=== PATIENT | male | born 1940 | race African-American/Black ===

== ENCOUNTER 2020-04-17 09:39 | Inpatient (IN) | payer BC, OTHER ==
[2020-04-17] MEDS ORDERED: SODIUM CHLORIDE 0.9% 500 ML INFUS.BAG IV ONE ×2 (10:18→12:54)
[2020-04-17 10:23] VITALS: BMI 26.2
[2020-04-17 11:23] LABS: BASO % 0.4 % (0-2.0); EOS % 0.6 % (0-4.5); HEMOGLOBIN 15.3 GM/dL (11.7-16.9); LYMPH % 8.8 % (8-40); MCH 34.9 pg (25.7-33.7); MCHC 33.3 g/dl (32.0-35.9); MEAN CELL VOLUME 104.7 fl (80-96); MEAN PLT VOLUME 8.6 fl (7.5-11.1); MONO % 9.4 % (3.8-10.2); NEUT % 80.8 % (42.8-82.8); PLATELET COUNT 230 K/MM3 (134-434); RBC 4.39 M/mm3 (4.00-5.60); RDW 13.1 % (11.9-15.9); WHITE BLOOD COUNT 7.2 K/mm3 (4.0-10.0)
[2020-04-17 11:29] LABS: INR 1.08 (0.83-1.09); PROTHROMBIN TIME (PATIENT) 13.3 SEC (9.7-13.0)
[2020-04-17 11:47] LABS: CHLORIDE 107 mmol/L (98-107); POTASSIUM 3.6 mmol/L (3.5-5.1); SODIUM 145 mmol/L (136-145)
[2020-04-17 11:49] LABS: ALBUMIN 3.3 g/dl (3.4-5.0); ANION GAP 10 MMOL/L (8-16); BLOOD UREA NITROGEN 13.1 mg/dL (7-18); CALCIUM 9.1 mg/dL (8.5-10.1); CO2 29 mmol/L (21-32); MAGNESIUM 1.9 mg/dL (1.8-2.4)
[2020-04-17 11:50] LABS: GLUCOSE,RANDOM 115 mg/dL (74-106)
[2020-04-17 11:52] LABS: PHOSPHOROUS 3.1 mg/dL (2.5-4.9); SGPT/ALT 38 U/L (13-61)
[2020-04-17 11:53] LABS: CREATININE 1.2 mg/dL (0.55-1.3); SGOT/AST 60 U/L (15-37)
[2020-04-17 11:54] LABS: BILIRUBIN,TOTAL 1.1 mg/dL (0.2-1); TOT PROT 8.1 g/dl (6.4-8.2)
[2020-04-17 11:55] LABS: ALK PHOS 35 U/L (45-117)
[2020-04-17] MEDS ORDERED: LORazepam 2 MG/ML SDV VIAL ONE (14:47)
[2020-04-17 16:29] LABS: URINE APPEARANCE CLEAR; URINE BILIRUBIN NEGATIVE (NEGATIVE); URINE COLOR YELLOW; URINE GLUCOSE (UA) NEGATIVE (NEGATIVE); URINE KETONE 40 mg/dl (NEGATIVE)
[2020-04-17 16:30] LABS: HYALINE CASTS 1.79 /uL (0-3.1); URINE BACTERIA 2538.9 /uL (0-1359); URINE LEUK ESTERASE 1+ (NEGATIVE); URINE NITRITE POSITIVE (NEGATIVE); URINE PROTEIN 1+ (NEGATIVE); URINE RBC 25.4 /uL (0-23.9); URINE WBC 1476.9 /uL (0-25.8)
[2020-04-17] MEDS ORDERED: CEFTRIAXONE 1 GM in DEXTROSE 5%-WATER - 100 ML IVPB ONE (16:53)
[2020-04-17] MEDS ORDERED: SODIUM CHLORIDE 1,000 ML IV SCH (18:00)
[2020-04-17] MEDS ORDERED: BACITRACIN 0.9 GM PACKET ONE (18:02)
[2020-04-17] MEDS ORDERED: cefTRIAXone SODIUM 1 GM VIAL ONE (18:03)
[2020-04-17] MEDS: BACITRACIN 15 GM TUBE TOPICAL OINTMENT TP SCH (18:17)
[2020-04-17 19:14] LABS: COCAINE, UR NEGATIVE ng/ml (CUTOFF=300); URINE AMPHETAMINES NEGATIVE ng/ml (CUTOFF=500); URINE BARBITURATES NEGATIVE ng/ml (CUTOFF=200)
[2020-04-17 19:15] LABS: OPIATES, URI NEGATIVE ng/ml (CUTOFF=300); PHENCYCLIDINE,URINE NEGATIVE ng/ml (CUTOFF=25)
[2020-04-17 19:20] LABS: METHADONE, UR NEGATIVE ng/ml (CUTOFF=300); URINE BENZODIAZEPINES NEGATIVE ng/ml (CUTOFF=200)
[2020-04-17] MEDS: HEPARIN NA (PORCINE) 5,000 UNITS/ML 1ML VIAL SQ SCH (22:40)
[2020-04-17] MEDS: INSULIN SLIDING SCALE (NOVOLOG) 1 VIAL SQ SCH (22:45)
[2020-04-18] MEDS: HEPARIN NA (PORCINE) 5,000 UNITS/ML 1ML VIAL SQ SCH ×3 (06:13→21:28)
[2020-04-18] MEDS: INSULIN SLIDING SCALE (NOVOLOG) 1 VIAL SQ SCH ×4 (06:13→21:27)
[2020-04-18 07:44] LABS: HEMATOCRIT 41.3 % (35.4-49); HEMOGLOBIN 13.6 GM/dL (11.7-16.9); MCH 34.4 pg (25.7-33.7); MEAN CELL VOLUME 104.3 fl (80-96); MEAN PLT VOLUME 8.1 fl (7.5-11.1); PLATELET COUNT 166 K/MM3 (134-434); RBC 3.96 M/mm3 (4.00-5.60); RDW 13.1 % (11.9-15.9); WHITE BLOOD COUNT 5.9 K/mm3 (4.0-10.0)
[2020-04-18 08:06] LABS: POTASSIUM 3.3 mmol/L (3.5-5.1)
[2020-04-18 08:10] LABS: ALBUMIN 2.8 g/dl (3.4-5.0); BLOOD UREA NITROGEN 10.9 mg/dL (7-18); CALCIUM 8.4 mg/dL (8.5-10.1); MAGNESIUM 1.9 mg/dL (1.8-2.4)
[2020-04-18 08:13] LABS: CREATININE 0.9 mg/dL (0.55-1.3)
[2020-04-18 08:15] LABS: TOT PROT 6.9 g/dl (6.4-8.2)
[2020-04-18] MEDS ORDERED: cefTRIAXone SODIUM 1 GM VIAL ONE (09:03)
[2020-04-18] MEDS ORDERED: DEXTROSE 5%-WATER - 50 ML IVPB ONE (09:03)
[2020-04-18] MEDS: BACITRACIN 15 GM TUBE TOPICAL OINTMENT TP SCH (09:18)
[2020-04-18] MEDS: SODIUM CHLORIDE 1,000 ML IV SCH (09:18)
[2020-04-18] MEDS: CEFTRIAXONE 1 GM in DEXTROSE 5%-WATER - 50 ML IVPB SCH (09:21)
[2020-04-18] MEDS ORDERED: LORazepam 1 MG TABLET PO PRN (10:17)
[2020-04-18] MEDS ORDERED: FOLIC ACID INJECTION - 1 MG, THIAMINE HCL 100 MG, MULTIVIT INJECTION ADULT 10 ML in SOD... IVPB ONE (10:23)
[2020-04-18] MEDS ORDERED: POTASSIUM PHOSPHATE 30 MM in SODIUM CHLORIDE 500 ML IVPB ONE (10:23)
[2020-04-18] MEDS: LORazepam 2 MG TABLET PO SCH ×2 (11:38→17:00)
[2020-04-18] MEDS ORDERED: THIAMINE HCL 200 MG/2 ML VIAL IVPB SCH (14:45)
[2020-04-18] MEDS ORDERED: PT OWN MED DRAWER 7, Y5N ONE (17:23)
[2020-04-18] MEDS: THIAMINE HCL 200 MG/2 ML VIAL IVPB SCH ×2 (19:00→21:15)
[2020-04-18] MEDS ORDERED: THIAMINE HCL 100 MG TABLET (FP) PO SCH (22:00)
[2020-04-18] MEDS: LORazepam 1 MG TABLET PO SCH (22:48)
[2020-04-19] MEDS: THIAMINE HCL 200 MG/2 ML VIAL IVPB SCH ×4 (02:55→22:32)
[2020-04-19] MEDS: HEPARIN NA (PORCINE) 5,000 UNITS/ML 1ML VIAL SQ SCH ×3 (06:04→22:37)
[2020-04-19] MEDS: LORazepam 1 MG TABLET PO SCH ×4 (06:05→22:36)
[2020-04-19] MEDS: INSULIN SLIDING SCALE (NOVOLOG) 1 VIAL SQ SCH ×4 (06:06→22:37)
[2020-04-19 07:14] LABS: BASO % 0.4 % (0-2.0); EOS % 6.2 % (0-4.5); HEMATOCRIT 36.5 % (35.4-49); LYMPH % 17.7 % (8-40); MCH 34.3 pg (25.7-33.7); MCHC 32.9 g/dl (32.0-35.9); MEAN CELL VOLUME 104.3 fl (80-96); MEAN PLT VOLUME 8.4 fl (7.5-11.1); MONO % 11.8 % (3.8-10.2); NEUT % 63.9 % (42.8-82.8); PLATELET COUNT 144 K/MM3 (134-434); RBC 3.51 M/mm3 (4.00-5.60); RDW 12.9 % (11.9-15.9); WHITE BLOOD COUNT 4.7 K/mm3 (4.0-10.0)
[2020-04-19 07:39] LABS: POTASSIUM 3.7 mmol/L (3.5-5.1)
[2020-04-19 07:41] LABS: CALCIUM 7.9 mg/dL (8.5-10.1)
[2020-04-19 07:42] LABS: ALBUMIN 2.4 g/dl (3.4-5.0); MAGNESIUM 1.9 mg/dL (1.8-2.4)
[2020-04-19 07:45] LABS: CREATININE 0.9 mg/dL (0.55-1.3); PHOSPHOROUS 2.7 mg/dL (2.5-4.9)
[2020-04-19 07:46] LABS: BILIRUBIN,TOTAL 0.7 mg/dL (0.2-1); TOT PROT 5.9 g/dl (6.4-8.2)
[2020-04-19] MEDS: SODIUM CHLORIDE 1,000 ML IV SCH (08:50)
[2020-04-19] MEDS: MULTIVITAMINS (DAILY MVI) TABLET (FP) PO SCH (09:00)
[2020-04-19] MEDS: BACITRACIN 15 GM TUBE TOPICAL OINTMENT TP SCH (09:00)
[2020-04-19] MEDS: FOLIC ACID 1 MG TABLET (FP) PO SCH (09:00)
[2020-04-19] MEDS ORDERED: DEXTROSE 5%-WATER - 50 ML IVPB ONE (09:40)
[2020-04-19] MEDS ORDERED: cefTRIAXone SODIUM 1 GM VIAL ONE (09:40)
[2020-04-19] MEDS: CEFTRIAXONE 1 GM in DEXTROSE 5%-WATER - 50 ML IVPB SCH (09:52)
[2020-04-19] MEDS ORDERED: SODIUM CHLORIDE 1,000 ML IV SCH (13:19)
[2020-04-19] MEDS: SODIUM CHLORIDE 0.45% 1,000 ML IV SCH (14:24)
[2020-04-20] MEDS ORDERED: LORazepam 0.5 MG TABLET PO PRN
[2020-04-20] MEDS: THIAMINE HCL 200 MG/2 ML VIAL IVPB SCH ×4 (02:20→21:25)
[2020-04-20] MEDS: LORazepam 1 MG TABLET PO SCH ×4 (06:25→23:37)
[2020-04-20] MEDS: HEPARIN NA (PORCINE) 5,000 UNITS/ML 1ML VIAL SQ SCH ×3 (06:26→21:25)
[2020-04-20] MEDS: INSULIN SLIDING SCALE (NOVOLOG) 1 VIAL SQ SCH ×4 (06:32→21:36)
[2020-04-20 07:58] LABS: BASO % 0.4 % (0-2.0); EOS % 8.4 % (0-4.5); HEMATOCRIT 36.9 % (35.4-49); HEMOGLOBIN 12.4 GM/dL (11.7-16.9); LYMPH % 20.6 % (8-40); MCH 35.3 pg (25.7-33.7); MCHC 33.6 g/dl (32.0-35.9); MEAN CELL VOLUME 104.9 fl (80-96); MEAN PLT VOLUME 8.6 fl (7.5-11.1); MONO % 10.7 % (3.8-10.2); NEUT % 59.9 % (42.8-82.8); PLATELET COUNT 149 K/MM3 (134-434); RBC 3.51 M/mm3 (4.00-5.60); RDW 12.8 % (11.9-15.9); WHITE BLOOD COUNT 4.1 K/mm3 (4.0-10.0)
[2020-04-20 08:40] LABS: POTASSIUM 3.1 mmol/L (3.5-5.1)
[2020-04-20 08:52] LABS: CALCIUM 8.2 mg/dL (8.5-10.1)
[2020-04-20 08:53] LABS: ALBUMIN 2.5 g/dl (3.4-5.0); MAGNESIUM 1.8 mg/dL (1.8-2.4)
[2020-04-20 08:55] LABS: CREATININE 0.9 mg/dL (0.55-1.3); PHOSPHOROUS 2.4 mg/dL (2.5-4.9)
[2020-04-20 08:56] LABS: BILIRUBIN,TOTAL 0.5 mg/dL (0.2-1)
[2020-04-20 08:57] LABS: TOT PROT 6.1 g/dl (6.4-8.2)
[2020-04-20] MEDS ORDERED: DEXTROSE 5%-WATER - 50 ML IVPB ONE (10:19)
[2020-04-20] MEDS ORDERED: cefTRIAXone SODIUM 1 GM VIAL ONE (10:19)
[2020-04-20] MEDS: FOLIC ACID 1 MG TABLET (FP) PO SCH (10:20)
[2020-04-20] MEDS: CEFTRIAXONE 1 GM in DEXTROSE 5%-WATER - 50 ML IVPB SCH (10:21)
[2020-04-20] MEDS: BACITRACIN 15 GM TUBE TOPICAL OINTMENT TP SCH (10:21)
[2020-04-20] MEDS: MULTIVITAMINS (DAILY MVI) TABLET (FP) PO SCH (10:21)
[2020-04-20] MEDS: SODIUM CHLORIDE 0.45% 1,000 ML IV SCH (13:46)
[2020-04-20] MEDS: KCL 10 MEQ IVPB 10 MEQ/100 ML INFUS.BAG IVPB SCH ×3 (14:45→16:47)
[2020-04-20] MEDS ORDERED: SODIUM PHOSPHATE - 15 MM in DEXTROSE 5%-WATER - 250 ML IVPB ONE (15:00)
[2020-04-21] MEDS ORDERED: LORazepam 0.5 MG TABLET PO PRN
[2020-04-21] MEDS: THIAMINE HCL 200 MG/2 ML VIAL IVPB SCH ×4 (02:31→21:42)
[2020-04-21] MEDS ORDERED: LORazepam 0.5 MG TABLET PO SCH (05:00)
[2020-04-21] MEDS: HEPARIN NA (PORCINE) 5,000 UNITS/ML 1ML VIAL SQ SCH ×3 (05:45→21:41)
[2020-04-21] MEDS: INSULIN SLIDING SCALE (NOVOLOG) 1 VIAL SQ SCH ×4 (06:09→21:31)
[2020-04-21 07:19] LABS: BASO % 0.5 % (0-2.0); HEMATOCRIT 34.7 % (35.4-49); HEMOGLOBIN 11.7 GM/dL (11.7-16.9); LYMPH % 23.9 % (8-40); MCH 34.9 pg (25.7-33.7); MCHC 33.7 g/dl (32.0-35.9); MEAN CELL VOLUME 103.5 fl (80-96); MEAN PLT VOLUME 9.8 fl (7.5-11.1); MONO % 13.4 % (3.8-10.2); NEUT % 56.2 % (42.8-82.8); PLATELET COUNT 154 K/MM3 (134-434); RBC 3.36 M/mm3 (4.00-5.60); RDW 12.5 % (11.9-15.9); WHITE BLOOD COUNT 4.7 K/mm3 (4.0-10.0)
[2020-04-21 07:46] LABS: POTASSIUM 3.5 mmol/L (3.5-5.1)
[2020-04-21 08:10] LABS: ALBUMIN 2.4 g/dl (3.4-5.0); CALCIUM 8.2 mg/dL (8.5-10.1)
[2020-04-21 08:11] LABS: BLOOD UREA NITROGEN 5.6 mg/dL (7-18); MAGNESIUM 1.8 mg/dL (1.8-2.4)
[2020-04-21 08:14] LABS: CREATININE 0.9 mg/dL (0.55-1.3); PHOSPHOROUS 3.5 mg/dL (2.5-4.9)
[2020-04-21 08:15] LABS: BILIRUBIN,TOTAL 0.4 mg/dL (0.2-1); TOT PROT 5.6 g/dl (6.4-8.2)
[2020-04-21] MEDS ORDERED: DEXTROSE 5%-WATER - 50 ML IVPB ONE (10:07)
[2020-04-21] MEDS ORDERED: cefTRIAXone SODIUM 1 GM VIAL ONE (10:07)
[2020-04-21] MEDS: CEFTRIAXONE 1 GM in DEXTROSE 5%-WATER - 50 ML IVPB SCH (10:17)
[2020-04-21] MEDS: FOLIC ACID 1 MG TABLET (FP) PO SCH ×2 (10:17→10:22)
[2020-04-21] MEDS: MULTIVITAMINS (DAILY MVI) TABLET (FP) PO SCH ×2 (10:18→10:22)
[2020-04-21] MEDS: BACITRACIN 15 GM TUBE TOPICAL OINTMENT TP SCH (10:18)
[2020-04-21] MEDS ORDERED: POTASSIUM CHLORIDE ORAL LIQUID 20 MEQ/15 ML PO ONE (15:54)
[2020-04-22] MEDS: THIAMINE HCL 200 MG/2 ML VIAL IVPB SCH ×2 (02:35→10:36)
[2020-04-22] MEDS ORDERED: LORazepam 0.5 MG TABLET PO ONE (05:00)
[2020-04-22] MEDS: INSULIN SLIDING SCALE (NOVOLOG) 1 VIAL SQ SCH ×2 (06:08→11:33)
[2020-04-22] MEDS: HEPARIN NA (PORCINE) 5,000 UNITS/ML 1ML VIAL SQ SCH (06:24)
[2020-04-22 06:57] LABS: BASO % 0.4 % (0-2.0); EOS % 8.2 % (0-4.5); HEMATOCRIT 35.5 % (35.4-49); LYMPH % 28.5 % (8-40); MCH 34.3 pg (25.7-33.7); MCHC 33.7 g/dl (32.0-35.9); MEAN CELL VOLUME 101.8 fl (80-96); MONO % 14.3 % (3.8-10.2); NEUT % 48.6 % (42.8-82.8); PLATELET COUNT 170 K/MM3 (134-434); RBC 3.49 M/mm3 (4.00-5.60); RDW 12.4 % (11.9-15.9); WHITE BLOOD COUNT 3.8 K/mm3 (4.0-10.0)
[2020-04-22 07:49] LABS: POTASSIUM 3.5 mmol/L (3.5-5.1)
[2020-04-22 07:58] LABS: ALBUMIN 2.4 g/dl (3.4-5.0); BLOOD UREA NITROGEN 4.9 mg/dL (7-18); MAGNESIUM 1.8 mg/dL (1.8-2.4)
[2020-04-22 08:02] LABS: CREATININE 0.9 mg/dL (0.55-1.3); PHOSPHOROUS 2.8 mg/dL (2.5-4.9)
[2020-04-22 08:03] LABS: BILIRUBIN,TOTAL 0.5 mg/dL (0.2-1); TOT PROT 5.7 g/dl (6.4-8.2)
[2020-04-22] MEDS ORDERED: THIAMINE HCL 100 MG TABLET (FP) PO SCH (10:00)
[2020-04-22] MEDS ORDERED: POTASSIUM CHLORIDE TABS 20 MEQ TABLET.ER (FP) PO ONE (10:12)
[2020-04-22] MEDS ORDERED: DEXTROSE 5%-WATER - 50 ML IVPB ONE (10:33)
[2020-04-22] MEDS ORDERED: cefTRIAXone SODIUM 1 GM VIAL ONE (10:33)
[2020-04-22] MEDS: CEFTRIAXONE 1 GM in DEXTROSE 5%-WATER - 50 ML IVPB SCH (10:48)
[2020-04-22] MEDS: MULTIVITAMINS (DAILY MVI) TABLET (FP) PO SCH (10:48)
[2020-04-22] MEDS: FOLIC ACID 1 MG TABLET (FP) PO SCH (10:48)
[2020-04-22] MEDS: BACITRACIN 15 GM TUBE TOPICAL OINTMENT TP SCH (10:49)
[2020-04-22 15:09] VITALS: BP 145/86; PULSE 85; TEMP 97.4
== END 2020-04-22 16:00 | DRG 896 ==
LOC: JER 09:39 → JERBED 15:36 → J4S 19:19
PROVIDERS: ADMIT Internal Medicine; ATTEND Student in an Organized Health Care Education/Training Program
PROC: HZ2ZZZZ Detoxification Services for Substance Abuse Treatment (ICD-10-PCS; principal; 2020-04-17)
DX: F10.232 Alcohol dependence with withdrawal with perceptual disturbance (principal); G93.41 Metabolic encephalopathy; N39.0 Urinary tract infection, site not specified; M62.82 Rhabdomyolysis; E87.2 Acidosis; W19.XXXA Unspecified fall, initial encounter; E87.6 Hypokalemia; E83.39 Other disorders of phosphorus metabolism; E78.5 Hyperlipidemia, unspecified; I10 Essential (primary) hypertension
CPT/HCPCS: 36415; 70450-TC; 71250-TC; 72125-TC; 74177-TC; 80053; 80307; 81003; 82140; 82550; 82553; 82607; 82746; 82962; 83036; 83605; 83735; 84100; 84443; 84484; 85025; 85027; 85610; 85730; 86850; 86900; 86901; 87040; 87086; 87186; 93005; 93010; 97116-GP; 97162-GP; 99285-25; C9803; J1644; U0003